=== PATIENT | female | born 2000 | race Caucasian/White ===

== ENCOUNTER 2019-05-27 07:01 | Emergency (ER) | payer BC ==
[2019-05-27 07:21] VITALS: BP 105/75
--- NOTE | 2019-05-27 07:38 | UC ---
Throat Pain/Nasal Sukumar HPI - HPI Summary HPI Summary: sore throat x 1 day pain is severe 8 out 10 worse with swallowing , better with Tylenol no fever, + chills, neck and body aches no cough , no nasal congestion - History of Current Complaint Chief Complaint: UCRespiratory Stated Complaint: ST,CHUA Time Seen by Provider: 05/27/19 07:19 Hx Obtained From: Patient Hx Last Menstrual Period: 05/21/19 Onset/Duration: Gradual Onset, Lasting Days - 1, Still Present Severity: Moderate Pain Intensity: 6 Cough: None Associated Signs & Symptoms: Negative: Wheezing, Hoarseness, Sinus Discomfort, Nasal Discharge, Fever, Vomiting, Rash - Allergies/Home Medications Allergies/Adverse Reactions: Allergies Allergy/AdvReac Type Severity Reaction Status Date / Time seasonal Allergy Runny Nose Uncoded 05/27/19 07:21 Home Medications: Home Medications O C 1 tab PO QPM 05/27/19 [History Confirmed 05/27/19] Phenol [Throat [place]] 1 applic PO ONCE PRN 05/27/19 [History Confirmed 05/27/19] PMH/Surg Hx/FS Hx/Imm Hx Previously Healthy: Yes - Surgical History Surgical History: Yes Surgery Procedure, Year, and Place: bunionectomy left 2017 - Family History Known Family History: Negative: Diabetes - Social History Alcohol Use: None Substance Use Type: None Smoking Status (MU): Never Smoked Tobacco Review of Systems All Other Systems Reviewed And Are Negative: Yes Constitutional: Positive: Chills, Fatigue. Negative: Fever Skin: Positive: Negative Eyes: Positive: Negative ENT: Positive: Sore Throat. Negative: Ear Ache, Nasal Discharge, Sinus Congestion, Sinus Pain/Tenderness Respiratory: Negative: Cough Is Patient Immunocompromised?: No Physical Exam Triage Information Reviewed: Yes Appearance: Well-Appearing, No Pain Distress, Well-Nourished Vital Signs: Initial Vital Signs Temp 98.8 F 05/27/19 07:16 Pulse 105 05/27/19 07:16 Resp 20 05/27/19 07:16 BP 105/75 05/27/19 07:16 Pulse Ox 100 05/27/19 07:16 Vital Signs Reviewed: Yes Eye Exam: Normal Eyes: Positive: Conjunctiva Clear ENT: Positive: Normal ENT inspection, Hearing grossly normal, Pharyngeal erythema, TMs normal. Negative: Tonsillar swelling, Tonsillar exudate Neck: Positive: Supple, Tenderness @, Enlarged Nodes @ Respiratory: Positive: Chest non-tender, Lungs clear, Normal breath sounds Cardiovascular: Positive: Tachycardia Abdominal Exam: Normal Skin Exam: Normal Throat Pain/Nasal Course/Dx - Differential Dx/Diagnosis Provider Diagnosis: Strep pharyngitis Discharge ED - Sign-Out/Discharge Documenting (check all that apply): Patient Departure All imaging exams completed and their final reports reviewed: No Studies - Discharge Plan Condition: Stable Disposition: HOME Prescriptions: Amoxicillin PO (*) [Amoxicillin 875 MG (*)] 875 mg PO BID #20 tab Patient Education Materials: Strep Throat (ED) Forms: *School Release Referrals: No Primary Care Phys,NOPCP [Primary Care Provider] - If Needed - Billing Disposition and Condition Condition: STABLE Disposition: Home
== END 2019-05-27 07:37 | disposition home or self-care (01) ==
LOC: UCCORT 07:01
DX: J02.0 Streptococcal pharyngitis (principal); R53.83 Other fatigue; Z91.09 Other allergy status, other than to drugs and biological substances
CPT/HCPCS: 87651; 99202; G0463

== ENCOUNTER 2019-06-08 15:53 | Emergency (ER) | payer BC ==
[2019-06-08 16:39] VITALS: BP 119/73
[2019-06-08] MEDS ORDERED: Cefdinir cap* 300 MG CAP PO ONE (17:25)
--- NOTE | 2019-06-08 17:26 | UC ---
Throat Pain/Nasal Sukumar HPI - HPI Summary HPI Summary: was on amoxicillin for 10 days stopped [address] came back today - History of Current Complaint Chief Complaint: UCGeneralIllness Stated Complaint: SORE THROAT Time Seen by Provider: 06/08/19 17:20 Hx Obtained From: Patient Hx Last Menstrual Period: 05/17/19 ?: No Onset/Duration: Sudden Onset, Lasting Days - 1, Still Present Pain Intensity: 5 Pain Scale Used: 0-10 Numeric Cough: None Associated Signs & Symptoms: Positive: Negative - Allergies/Home Medications Allergies/Adverse Reactions: Allergies Allergy/AdvReac Type Severity Reaction Status Date / Time seasonal Allergy Runny Nose Uncoded 06/08/19 16:33 PMH/Surg Hx/FS Hx/Imm Hx Previously Healthy: Yes - Surgical History Surgical History: Yes Surgery Procedure, Year, and Place: bunionectomy left 2017 - Family History Known Family History: Negative: Diabetes - Social History Occupation: Student Lives: Dormitory/Roommates Alcohol Use: None Substance Use Type: None Smoking Status (MU): Never Smoked Tobacco Review of Systems All Other Systems Reviewed And Are Negative: Yes Constitutional: Positive: Chills, Fatigue Skin: Positive: Negative Eyes: Positive: Negative ENT: Positive: Sore Throat Respiratory: Positive: Negative Cardiovascular: Positive: Negative Gastrointestinal: Positive: Negative Genitourinary: Positive: Negative Motor: Positive: Negative Neurovascular: Positive: Negative Musculoskeletal: Positive: Negative Neurological/Mental Status: Positive: Negative Psychological: Positive: Negative Is Patient Immunocompromised?: No Physical Exam Triage Information Reviewed: Yes Appearance: No Pain Distress, Well-Nourished, Ill-Appearing - mild Vital Signs: Initial Vital Signs Temp 98.1 F 06/08/19 16:33 Pulse 98 06/08/19 16:33 Resp 15 06/08/19 16:33 BP 119/73 06/08/19 16:33 Pulse Ox 90 06/08/19 16:33 Vital Signs Reviewed: Yes Eye Exam: Normal Eyes: Positive: Conjunctiva Clear ENT Exam: Normal ENT: Positive: Normal ENT inspection, Hearing grossly normal, Pharyngeal erythema, TMs normal, Uvula midline. Negative: Nasal congestion, Trismus, Muffled voice, Hoarse voice, Dental tenderness, Sinus tenderness Dental Exam: Normal Neck exam: Normal Neck: Positive: Supple, Nontender, No Lymphadenopathy Respiratory Exam: Normal Respiratory: Positive: Chest non-tender, Lungs clear, Normal breath sounds, No respiratory distress, No accessory muscle use Cardiovascular Exam: Normal Cardiovascular: Positive: RRR, No Murmur, Pulses Normal, Brisk Capillary Refill Musculoskeletal Exam: Normal Musculoskeletal: Positive: Strength Intact, ROM Intact, No Edema Neurological Exam: Normal Neurological: Positive: Alert, Muscle Tone Normal Psychological Exam: Normal Skin Exam: Normal Diagnostics - Laboratory Lab Results: RST + Throat Pain/Nasal Course/Dx - Course Course Of Treatment: Cefdinir, tylenol ibuprofen increase fluids---follow with pcp or [facility]- -return as needed - Differential Dx/Diagnosis Provider Diagnosis: Strep throat Discharge ED - Sign-Out/Discharge Documenting (check all that apply): Patient Departure All imaging exams completed and their final reports reviewed: No Studies - Discharge Plan Condition: Stable Disposition: HOME Prescriptions: Cefdinir [Cefdinir 300 MG CAP] 300 mg PO BID #13 capsule Patient Education Materials: Strep Throat (DC) Referrals: [facility] [Outside] - If Needed - Billing Disposition and Condition Condition: STABLE Disposition: Home - Attestation Statements Provider Attestation: This patient was not seen by me. I was available for consult. Chart reviewed. ZAKIA
== END 2019-06-08 17:34 | disposition home or self-care (01) ==
LOC: UCCORT 15:53
DX: J02.0 Streptococcal pharyngitis (principal); R53.83 Other fatigue; Z91.09 Other allergy status, other than to drugs and biological substances
CPT/HCPCS: 87651; 99212; A9270-GY; G0463

== ENCOUNTER 2019-06-18 16:21 | Emergency (ER) | payer BC ==
[2019-06-18 19:07] VITALS: BP 117/64
[2019-06-18] MEDS ORDERED: Cefdinir cap* 300 MG CAP PO ONE ×2 (20:01)
--- NOTE | 2019-06-18 20:05 | UC ---
Throat Pain/Nasal Sukumar HPI - HPI Summary HPI Summary: 18-year-old female comes in with a chief complaint of sore throat. Patient was treated for strep throat with 10 days of amoxicillin starting an May 27, 2019. Patient got better while on the amoxicillin. 2 days after she finished amoxicillin she developed sore throat came back here on June 08, 2019 and was positive for strep. She's been treated with Omnicef for 7 days and was again she got better while on the antibiotics. She finished the Omnicef 2 days ago and today she woke up with sore throat. Earlier she had right neck pain and swelling now she has left neck pain and swelling. No parotid gland swelling. Does hurt to swallow. - History of Current Complaint Chief Complaint: UCGeneralIllness Stated Complaint: SORE THROAT Time Seen by Provider: 06/18/19 19:03 Hx Last Menstrual Period: 05/17/19 Pain Intensity: 4 - Allergies/Home Medications Allergies/Adverse Reactions: Allergies Allergy/AdvReac Type Severity Reaction Status Date / Time seasonal Allergy Runny Nose Uncoded 06/18/19 19:05 Home Medications: Home Medications O C 1 tab PO QPM 05/27/19 [History Confirmed 06/18/19] Cefdinir [Cefdinir 300 MG CAP] 300 mg PO BID #18 cap 06/18/19 [Rx] PMH/Surg Hx/FS Hx/Imm Hx Previously Healthy: Yes - Surgical History Surgical History: Yes Surgery Procedure, Year, and Place: left bunionectomy 2017 - Family History Known Family History: Negative: Diabetes - Social History Alcohol Use: None Substance Use Type: None Smoking Status (MU): Never Smoked Tobacco Review of Systems All Other Systems Reviewed And Are Negative: Yes Constitutional: Positive: Other - SEE HPI Skin: Positive: Negative Eyes: Positive: Negative ENT: Positive: Sore Throat Respiratory: Positive: Negative Cardiovascular: Positive: Negative Gastrointestinal: Positive: Negative Motor: Positive: Negative Neurovascular: Positive: Negative Musculoskeletal: Positive: Negative Neurological/Mental Status: Positive: Negative Psychological: Positive: Negative Is Patient Immunocompromised?: No Physical Exam Triage Information Reviewed: Yes Appearance: No Pain Distress, Well-Nourished, Ill-Appearing - MILD Vital Signs: Initial Vital Signs Temp 99.1 F 06/18/19 19:06 Pulse 101 06/18/19 19:06 Resp 17 06/18/19 19:06 BP 117/64 06/18/19 19:06 Pulse Ox 100 06/18/19 19:06 Vital Signs Reviewed: Yes Eye Exam: Normal Eyes: Positive: Conjunctiva Clear ENT: Positive: Pharyngeal erythema, TMs normal, Tonsillar swelling - 2+ tonsils bilaterally. Positive erythema., Uvula midline. Negative: Muffled voice, Hoarse voice Neck: Positive: Supple, Other: - There is some swelling left anterior neck. No parotid gland swelling or tenderness. Respiratory: Positive: Lungs clear, Normal breath sounds, No respiratory distress Cardiovascular: Positive: RRR Musculoskeletal: Positive: Strength Intact, ROM Intact Neurological: Positive: Alert, Muscle Tone Normal Psychological: Positive: Age Appropriate Behavior Skin Exam: Normal Throat Pain/Nasal Course/Dx - Course Course Of Treatment: Strep was negative today. I sent a culture for the throat. Mononucleosis is unlikely as the patient has improved each time with the antibiotic. Patient does have tonsillitis today and the swelling in the left neck is most consistent with lymphadenopathy. We did discuss signs and symptoms of mumps. If patient gets any parotid swelling she is to get reevaluated again right away. Plan is to treat with Omnicef for 10 days and have the patient follow-up with ENT. If patient feels worse in any difficulty swallowing or breathing or feels ill she is to go the emergency department. - Differential Dx/Diagnosis Provider Diagnosis: Tonsillitis Discharge ED - Sign-Out/Discharge Documenting (check all that apply): Patient Departure All imaging exams completed and their final reports reviewed: No Studies - Discharge Plan Condition: Stable Disposition: HOME Prescriptions: Cefdinir [Cefdinir 300 MG CAP] 300 mg PO BID #18 cap Patient Education Materials: Tonsillitis (ED) [facility]] bA Olsen MD [Medical Doctor] - Gilmer Clark MD [Medical Doctor] - Bean Chinchilla MD [Medical Doctor] - Additional Instructions: FOLLOW UP WITH ENT. GET REEVALUATED IF YOU HAVE ANY PAROTID GLAND SWELLING. GO TO THE EMERGENCY DEPARTMENT IF WORSE; DIFFICULTY SWALLOWING OR BREATHING, YOU FEEL ILL OR ANY QUESTIONS OR CONCERNS. - Billing Disposition and Condition Condition: STABLE Disposition: Home
== END 2019-06-18 20:22 | disposition home or self-care (01) ==
LOC: UCCORT 16:21
DX: J03.90 Acute tonsillitis, unspecified (principal); Z91.09 Other allergy status, other than to drugs and biological substances
CPT/HCPCS: 87070; 87651; 99212; A9270-GY; G0463